=== PATIENT | male | born 1985 ===

== ENCOUNTER 2024-08-25 15:27 | Emergency (ER) | payer OTHER, SELFPAY ==
--- NOTE | ~2024-08-25 | XR_ITS ---
HISTORY: pain after landing on feet from roof COMPARISON: None TECHNIQUE: 2 views of the right tibia and fibula were performed. FINDINGS: No acute fracture or dislocation is identified. Soft tissues are unremarkable without foreign body or significant calcification. Normal mineralization. IMPRESSION: No acute fracture or dislocation within the right tibia or fibula. Reviewed, dictated and finalized at location A. IT REVIEW ANALYST
--- NOTE | ~2024-08-25 | CT_ITS ---
History: Fall PROCEDURE: CT thoracic and lumbar spine without intravenous contrast. COMPARISON: None TECHNIQUE: Multiple contiguous axial images of the thoracic spine were performed without the administration of i ntravenous contrast. DLP: 1705 mGy-cm FINDINGS within the thoracic spine: Preservation of the normal curvature of the thoracic spine is identified. No acute compression fractures are present. No soft tissue abnormality is noted. FINDINGS within the lumbar spine: Preservation of the normal lordotic curvature of the lumbar spine is identified, possibly muscular in origin. No acute compression fractures are present. No soft tissue abnormality is noted. Impression: No acute compression fracture, as detailed above. Reviewed, dictated and finalized at location A. THREADER OPERATOR Impression: No acute compression fracture, as detailed above.
--- NOTE | ~2024-08-25 | CT_ITS ---
CORRECTED REPORT corrected order description [facility] [place] 08/28/2024 This report was recreated on 08/28/24. Original report was IAL LIBRARIAN Clinical indication:Fall COMPARISON:Comparison with multiple plain film evaluations of the right ankle and right foot TECHNIQUE: Multiple contiguous axial images of the right lower extremity were performed without the administration of intravenous contrast. FINDINGS: Acute comminuted minimally displaced fractures are identified within both the medial and lateral margins of the talus (comminuted laterally and a simple fracture medially). The lateral fracture extends into the articular surface of the talocalcaneal joint space. No additional fractures are appreciated. IMPRESSION: Comminuted minimally displaced acute fracture of the lateral margin of the talus extending into the articular surface of the talocalcaneal joint space. Acute avulsion fracture of the medial margin of the talus. Reviewed, dictated and finalized at location A. IAL LIBRARIAN MTDD IMPRESSION: Comminuted minimally displaced acute fracture of the lateral margin of the talu s extending into the articular surface of the talocalcaneal joint space. Acute avulsion fracture of the medial margin of the talus.
--- NOTE | ~2024-08-25 | XR_ITS ---
HISTORY: fall from roof, LATERAL knee pain COMPARISON: None TECHNIQUE: 3 views of the right knee were performed. FINDINGS: No acute or subacute fracture. Medial and lateral tibiofemoral joint space narrowing is identified. Moderate suprapatellar joint effusion is identified. The infrapatellar joint space is clear. IMPRESSION: Moderate suprapatellar joint effusion without acute fracture identified. Reviewed, dictated and finalized at location A. IANCE REPAIRER IMPRESSION: Moderate suprapatellar joint effusion without acute fracture ident ified.
--- NOTE | ~2024-08-25 | XR_ITS ---
HISTORY: fall from 12-14 ft, landed on foot;LATERAL PAIN AND swelling COMPARISON: None TECHNIQUE: 4 views of the right ankle were performed FINDINGS: Indeterminate lucency, possibly within the right calcaneus for which dedicated calcaneal views are re commended. Moderate lateral soft tissue swelling is noted. Bone mineralization is age-appropriate. IMPRESSION: Indeterminate lucency possibly within the right lateral proximal calcaneus for which dedicated calcan eal views are recommended. Reviewed, dictated and finalized at location A. CH THERAPIST TECHNICIAN IMPRESSION: Indeterminate lucency possibly within the right lateral proximal calcaneus for which dedicated calcaneal views are recommended.
--- NOTE | ~2024-08-25 | CT_ITS ---
History: Fall (from 14 feet). Compression fracture suspected clinically PROCEDURE: CT cervical spine without intravenous contrast. COMPARISON: None TECHNIQUE: Multiple contiguous axial images of the cervical spine were performed without the administration of i ntravenous contrast. DLP: 605 mGy-cm FINDINGS: Straightening of the normal curvature of the cervical spine is identified. No acute fractures are present. The bilateral lung apices are unremarkable. No soft tissue abnormality is present. The airway is patent. Impression: Straightening of the normal curvature of the cervical spine. No acute fracture. Reviewed, dictated and finalized at location A. E CHANGER Impression: Straightening of the normal curvature of the cervical spine. No acute fracture.
[2024-08-25 15:37] VITALS: BP 137/95; PULSE 81; RESP 16; TEMP 36.6; O2SAT 100
--- NOTE | 2024-08-25 15:54 | ED_ITS ---
HPI - Extremity Injury (Lower) General Chief Complaint: Extremity Injury, Lower Stated Complaint: ankle pain Time Seen by Provider: 08/25/24 15:36 Source: patient and family Mode of arrival: ambulatory Limitations: no limitations History of Present Illness HPI Narrative: Patient presents with pain after he accidentally fell off of a roof approximately 12-14 ft while clearing snow. He landed in a pile of snow with a pallet in it, primarily on his right ankle. He is having pain there as well as right buchanan and right knee pain. No back pain or hip pain. He did attempt to ambulate on it but had pain. Pain is primarily along the lateral malleolus. 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 History of meniscus tear in bilateral knees. No loss of consciousness and did no t strike his head. Not on anticoagulation. No chest pain , abdominal pain or shortness of breath. Related Data Allergies Allergy/AdvReac Type Severity Reaction Status Date / Time No Known Allergies Allergy Verified 08/24/14 11:14 [facility] Past Medical History Medical History (Updated 08/26/24 @ 00:00 by Background Daemon) Injury of meniscus of knee b/l Exam Narrative: GENERAL: Well-appearing, well-nourished, and in no acute distress. HEAD: Normocephalic, atraumatic. EYES: Non injected, non icteric ENT: Nares clear, no rhinorrhea or epistaxis. NECK: Supple. CHEST: Speaking in full sentences. No respiratory distress. HEART: Regular rate and rhythm. . ABDOMEN: Soft, nondistended. Nontender to palpation, no rigidity or guarding, not peritoneal. Pelvis: Stable to compression. EXTREMITIES: Normal range of motion -patient able demonstrate flexion extension at the right knee where he does have a moderate-sized effusion. Patient also has marked edema/swelling around the right ankle particularly along the medial and lateral malleoli but is able to demonstrate 5/5 strength with dorsiflexion/plantar flexion, eversion, and inversion at this extremity. SKIN: Warm, dry, no rash. Skin intact. Ecchymosis along medial knee. NEURO: No focal deficits. Sensation intact throughout leg. Alert and oriented x3. PSYCH: Normal mood and affect. Course Vital Signs Vital signs: Vital Signs Temperature 98 F 08/25/24 15:37 Pulse Rate 81 08/25/24 15:37 Respiratory Rate 16 08/25/24 15:37 Blood Pressure 137/95 H 08/25/24 15:37 Pulse Oximetry 100 08/25/24 15:37 Oxygen Delivery Room Air 08/25/24 15:37 Temperature 98 F 08/25/24 15:37 Pulse Rate 87 08/25/24 19:59 Respiratory Rate 16 08/25/24 19:59 Blood Pressure 134/92 H 08/25/24 19:59 Pulse Oximetry 100 08/25/24 19:59 Oxygen Delivery Room Air 08/25/24 15:37 MDM - Extremity Injury (Lower) MDM Narrative Medical decision making narrative: Patient presents with right ankle pain after he fell off a 12-14 foot roof while cleaning snow, landing primarily on his right foot which he axial loaded into a pile of snow and a pallet. Pain primarily along lateral malleolus but also right buchanan and knee, the latter has an effusion. Otherwise neurovascularly intact. In the emergency department he is afebrile with acceptable vital signs although elevated diastolic blood pressure. Given concern for transmission of force and axial loading that could cause compression fracture, will obtain plain film imaging of the affected areas and CT imaging of spine throughout. I am told by the nurse at approximately 5:40 p.m. that patient is continuing to have pain even after 1st dose of [place]. IM Dilaudid ordered. Xrays negative for acute fracture although there is concern for occult fracture. CT of this foot is obtained which does show a talar fracture. Point of care bedside ultrasound is performed which is limited but it appears no disruption of Achilles tendon. Patient has previously been seen by orthopedic surgeon Dr. Francesco Yao in [place] (although it appears Dr Yao specializes in shoulders). He is provided a disc of his images if he chooses to follow up with this orthopedic surgeon. Discussed with ortho seasonal delivery driver Dr Mcfadden who states that often these need specialist referral for foot/ankle specialists. I did provide patient contact information for foot/ankle specialist chronic condition nurse (especially related to trauma) and did discuss patient with her and she confirmed this was an appropriate referral and agreed with the management which included splint and crutches and pain control. Discussed non opiate medications as well as the risks/benefits of narcotic medication for breakthrough pain and safe use and disposal. He verified understanding. Differential Diagnosis Differential diagnosis: Likely ankle sprain and strain, acute internal derangement of knee (including meniscal and ligamentous injury), ankle fracture and other (Achilles tendon tear; vertebral compression fracture) Imaging Data Radiologist's impression: Straightening of the normal curvature of the cervical spine. No acute fracture. No acute compression fracture, as detailed above. Indeterminate lucency possibly within the right lateral proximal calcaneus for which dedicated calcaneal views are recommended. Moderate suprapatellar joint effusion without acute fracture identified. No acute fracture or dislocation within the right tibia or fibula. Comminuted minimally displaced acute fracture of the lateral margin of the talus extending into the articular surface of the talocalcaneal joint space. Acute avulsion fracture of the medial margin of the talus. Discharge Plan Discharge Clinical Impression: Fall from roof as cause of accidental injury, Suprapatellar effusion of knee, Talar fracture Patient Disposition: Home, Self-Care Condition: Stable Instructions: Antibiotic Form, Crutch Instructions (ED), Talar Fracture in Adults (ED), Splint Care (ED), Swollen Knee Joint (ED), Fall Prevention (ED) Additional Instructions: As we discussed, you have a talar fracture. You are being provided a disc if you choose to follow-up with your orthopedic surgeon Dr Francesco Yao in [place] (although it appears that they may specialize in shoulders?). They may be able to recommend you to a foot/ankle surgeon who specializes in talar fractures. Alternatively, the name of an orthopedic surgeon is listed below or, more specifically, a chronic condition nurse surgeon who specializes in foot and ankle fractures related to trauma. Call for an appointment. Acetaminophen/Tylenol (maximum 4000 mg per day) is safe to take with NSAIDs (ibuprofen/Motrin) for pain relief. Return to the emergency department with any new or worsening symptoms. Patient Language: Prydeinig Prescriptions: New acetaminophen 500 mg capsule 1,000 mg PO Q6H PRN (Reason: pain) Qty: 30 0RF ibuprofen 600 mg tablet 600 mg PO TID PRN (Reason: pain) Qty: 30 0RF oxycodone 5 mg tablet 5 mg PO Q8H PRN (Reason: pain) Qty: 20 0RF Follow-up/Referrals: Terrie Rosas DPM [Physician] - (chronic condition nurse who specializes in trauma (foot and ankle)) PHYSICIAN,BARK TANNER [Primary Care Provider] - Mack Mcfadden MD [Physician] - (orthopedics) Stand Alone Forms: Work/School Release IP Time of Disposition: 19:07
[2024-08-25] MEDS: HYDROcodone/acetaminophen (*CRX) 5-325 MG TABLET 1 TAB PO (16:08)
[2024-08-25] MEDS: HYDROmorphone HCL INJ (*CRX) 1 MG/ML SYR IM (17:49)
[2024-08-25 19:59] VITALS: BP 134/92; PULSE 87; RESP 16; O2SAT 100
== END 2024-08-25 20:00 | disposition home or self-care (01) ==
PROVIDERS: Emergency Provider Student in an Organized Health Care Education/Training Program
DX: S92.144A Nondisplaced dome fracture of right talus, initial encounter for closed fracture (principal); S92.154A Nondisplaced avulsion fracture (chip fracture) of right talus, initial encounter for closed fracture; M25.461 Effusion, right knee; W13.2XXA Fall from, out of or through roof, initial encounter
CPT/HCPCS: 72125; 72128; 72131; 73562; 73590; 73610; 73700; 73701; 96372; 99284; A9270; J1171